=== PATIENT | male | born 1965 | race Hispanic/Latino ===

== ENCOUNTER → 2019-02-16 | Outpatient (CLI) | payer OTHER ==
--- NOTE | 2019-02-16 09:46 | Diagnostic Imaging Report ---
EXAMINATION: PA and lateral views of the chest. COMPARISON: None CLINICAL HISTORY: Weight loss DISCUSSION: The lungs are adequately inflated. Lower lobe predominant coarse interstitial opacities best seen on the lateral radiograph. No airspace consolidation, pleural effusion, or pneumothorax. Convexity of the main pulmonary artery with otherwise normal cardiomediastinal contour. No overt pulmonary edema. No acute osseous abnormality. Skeletal hyperostosis. IMPRESSION: No acute cardiopulmonary abnormality. Findings suspicious for lower lobe predominant fibrotic changes. Enlargement of the main pulmonary artery suggests underlying pulmonary hypertension. CT scan of the chest may be of benefit for further evaluation. Signed by: Dr. Edgard Nina M.D. on 02/16/2019 9:42 AM
--- NOTE | 2019-02-16 12:04 | Diagnostic Imaging Report ---
EXAM: US ABDOMEN COMPLETE DATE: 02/16/2019 9:22 AM Time stamp on exam: INDICATION: Abnormal weight loss COMPARISON: None TECHNIQUE: Transverse and longitudinal izquierdo scale and color doppler sonographic images of the upper abdomen were obtained. FINDINGS: LIVER 12 cm in the right midclavicular line. Normal echogenicity, normal contour, no masses. SPLEEN 10.6 cm in maximum diameter. Normal echogenicity, no masses. GALLBLADDER No stones, sludge, wall-thickening or pericholecystic fluid. Negative sonographic Multani's sign. BILE DUCTS No intra nor extra-hepatic biliary dilation. Common bile duct measures 0.3 cm PANCREAS: Neck and proximal body are unremarkable. Remainder is poorly visualized secondary to overlying bowel gas. RIGHT KIDNEY: 11.8 cm Echogenicity: Normal Collecting System: No hydronephrosis Stones: None Cyst/Mass: None LEFT KIDNEY: 11.4 cm Echogenicity: Normal Collecting System: No hydronephrosis Stones: None Cyst/Mass: None VESSELS: Aorta: Visualized portions are nonaneurysmal Inferior Vena Cava: Patent. Main Portal Vein: 1 cm, normal size with hepatopetal flow. FREE FLUID: None IMPRESSION: Unremarkable abdominal ultrasound. Signed by: Dr. Edgard Nina M.D. on 02/16/2019 12:00 PM
== END ==
LOC: US 09:10
PROVIDERS: ATTEND Family Medicine
DX: R63.4 Abnormal weight loss (principal)
CPT/HCPCS: 71046; 76700